=== PATIENT | female | born 1995 | race Caucasian/White ===

== ENCOUNTER 2018-05-21 21:21 | Emergency (ER) | payer SELFPAY ==
[2018-05-21] MEDS ORDERED: NS(*) 0.9% 1000 ML BAG 1,000 ML IV ONE ×2 (21:44→23:20)
[2018-05-21] MEDS ORDERED: ONDANSETRON 4 MG/2 ML VIAL IVP ONE (21:45)
--- NOTE | 2018-05-21 21:55 | ER Report ---
History and Physical Time Seen By MD: 21:48 Hx. of Stated Complaint: patient states that she got into an argument with her boyfriend, patient started walking when she became sick; someone driving saw her walkin on the side of [place] [address]; city bus driver states that she wanted to come to the hospital because she was still sick; patient has a bag of marijuana that was in her bra; marijuana was given to the warehouse loader erinn rinaldi to be placed in the security safe HPI/ROS CHIEF COMPLAINT: Nausea and vomiting HISTORY OF PRESENT ILLNESS: Patient is a 23-year-old female who is somewhat of a poor historian she is also tearful at the bedside. She states that she was at a friend's house and she is currently traveling with her boyfriend. She is from [facility]. She states that they got into an argument and she started walking along the highway trying to get "home" apparently while she was walking she became closed started feeling nauseous and having some vomiting episodes. She denies any alcohol use tonight but does say she smokes pot. She is only oriented to person and place but not time. Apparently a city bus driver saw her walking on the road on [address] and stopped to see if she needed assistance. She stated that she felt sick and wanted to come to the hospital. Apparently the patient was brought to the hospital by this good Religious. She states that she just feels sick. She denies any headache or head injury. She denies chest pain or shortness of breath. She does feel anxious she feels nauseous and has vomited 4 times but reports no abdominal pain or diarrhea. Patient denies feeling depressed than b eing upset due to her recent argument with her boyfriend. She denies suicidal or homicidal ideation. REVIEW OF SYSTEMS: Constitutional: No fever, no chills. Eyes: No discharge. ENT: No sore throat. Cardiovascular: No chest pain, no palpitations. Respiratory: No cough, no shortness of breath. Gastrointestinal: Nausea and vomiting Genitourinary: No hematuria. Musculoskeletal: No back pain. Skin: No rashes. Neurological: No headache. Allergies: Coded Allergies: amoxicillin (Verified Allergy, Unknown, 05/21/18) promethazine (Verified Allergy, Unknown, 05/21/18) Home Meds Active Scripts Ondansetron Hcl (ZOFRAN) 4 Mg Tablet, 4 MG PO Q8H for Nausea, #15 TAB 0 Refills Prov:HAYDE GUTHRIE MD 05/21/18 Azithromycin (ZITHROMAX) 250 Mg Tablet, 1 TAB PO QDAY, #4 TAB 0 Refills Prov:HAYDE GUTHRIE MD 05/21/18 Past Medical/Surgical History History of being partially deaf, history of ovarian cysts. Hx Substance Use Disorder: Yes (marijuana, meth 3 days ago) Hx Alcohol Use: Yes (occ.) Constitutional Vital Sign - Last 24 Hours 05/21/18 05/21/18 05/21/18 05/21/18 21:26 21:28 21:30 21:50 Temp 97.8 Pulse 96 128 98 Resp 20 B/P (MAP) 122/78 (93) 126/78 126/78 (94) Pulse Ox 91 100 82 100 O2 Delivery Room Air Room Air Room Air Oxy Mask O2 Flow Rate 5 Physical Exam General/Constitutional: Patient is awake, alert, nontoxic and in no acute respiratory distress. ANxious and tearful Head: Normocephalic and atraumatic. Eyes: Conjunctival clear, Pupils are equal and reactive to light. Extraocular muscles are intact and symmetrical. Sclera are clear and anicteric. Ears:External canals are clear. Tympanic membranes are clear with normal landmarks and light reflex. Nares: No rhinorrhea or bleeding. Turbinates are pink and moist. Oropharyngeal: Mucous membranes are moist. There is no pharyngeal erythema or exudate. There are no palatal petechiae. Uvula is midline and symmetrical. Neck: Supple, no adenopathy. Cardiovascular: Heart is regular rate and rhythm without audible murmurs, rubs or gallops. Pulmonary: Lungs are clear to auscultation bilaterally. There are no wheezes, rales, or rhonchi. Chest rise is symmetrical Abdomen: Soft, nontender, no guarding or peritoneal signs. Extremities: No gross deformities, No peripheral cyanosis. Able to move all 4 extremities. Neuro: Alert and oriented X3, Cranial nerves 2 thru 12 are intact and symmetrical. Patient has normal gait. Skin: No rashes, skin is warm dry and well perfused. Psychiatric: Patient is anxious and tearful. Mood is congruent with affect. Patient stopped process seems logical and goal-directed. She does not seem to be responding to internal stimuli. She denies suicidal or homicidal ideation. Medical Decision Making Data Points Result Diagram: 05/21/18213005/21/182130 Laboratory Hematology Test 05/21/18 21:31 05/21/18 21:37 05/21/18 22:01 Red Blood Count 4.47 M/uL (4.17-5.56) Mean Corpuscular Volume 89.3 fL (80.0-96.0) Mean Corpuscular Hemoglobin 30.9 pg (26.0-33.0) Mean Corpuscular Hemoglobin Concent 34.6 g/dL (32.0-36.0) Red Cell Distribution Width 13.5 % (11.5-14.5) Mean Platelet Volume 8.6 fL (7.2-11.1) Neutrophils (%) (Auto) 67.6 % (39.4-72.5) Lymphocytes (%) (Auto) 22.4 % (17.6-49.6) Monocytes (%) (Auto) 9.1 % (4.1-12.4) Eosinophils (%) (Auto) 0.1 % (0.4-6.7) Basophils (%) (Auto) 0.8 % (0.3-1.4) Nucleated RBC Relative Count (auto) 0.1 /100WBC Neutrophils # (Auto) 6.8 K/uL (2.0-7.4) Lymphocytes # (Auto) 2.3 K/uL (1.3-3.6) Monocytes # (Auto) 0.9 K/uL (0.3-1.0) Eosinophils # (Auto) 0.0 K/uL (0.0-0.5) Basophils # (Auto) 0.1 K/uL (0.0-0.1) Nucleated RBC Absolute Count (auto) 0.01 K/uL Sodium Level 135 mmol/L (137-145) Potassium Level 4.0 mmol/L (3.5-5.0) Chloride Level 98 mmol/L (98-107) Carbon Dioxide Level 21 mmol/L (22-31) Blood Urea Nitrogen 14 mg/dl (7-18) Creatinine 0.80 mg/dl (0.52-1.04) Glomerular Filtration Rate Calc > 60.0 Random Glucose 78 mg/dl (75-110) Calcium Level 9.2 mg/dl (8.4-10.2) Total Bilirubin 0.7 mg/dl (0.2-1.3) Aspartate Amino Transf (AST/SGOT) 33 U/L (0-35) Alanine Aminotransferase (ALT/SGPT) 24 U/L (0-56) Alkaline Phosphatase 87 U/L (0-126) Total Protein 7.5 g/dl (6.3-8.2) Albumin 4.3 g/dl (3.5-5.0) Lipase 66 U/L (23-300) Human Chorionic Gonadotropin, Qual Negative (NEGATIVE) Salicylates Level < 10 mg/L Salicylate Last Dose Date unk Urine Opiates Screen Positive Acetaminophen Level < 10 ug/ml Urine Barbiturates Screen Negative Ur Tricyclic Antidepressants Screen Negative Urine Phencyclidine Screen Negative Urine Amphetamines Screen Positive Urine Benzodiazepines Screen Negative Urine Cocaine Screen Negative Urine Cannabinoids Screen Positive Serum Alcohol < 10 mg/dl Helicobacter pylori IgG Antibody Negative (NEGATIVE) Urine Color Yellow Urine Clarity Cloudy Urine pH 6.0 pH (4.8-9.5) Urine Specific Desha 1.021 Urine Protein 100 mg/dL (NEGATIVE) Urine Glucose (UA) Negative mg/dL (NEGATIVE) Urine Ketones 20 mg/dL (NEGATIVE) Urine Blood Negative (NEGATIVE) Urine Nitrite Negative (NEGATIVE) Urine Bilirubin Negative (NEGATIVE) Urine Urobilinogen 2.0 mg/dL (0.2-1.9) Urine Leukocyte Esterase Trace (NEGATIVE) Urine RBC 6 /HPF (0-2/HPF) Urine WBC 31 /HPF (0-5/HPF) Urine Squamous Epithelial Cells Many /LPF (</=FEW) Urine Bacteria Few /HPF (NONE-FEW) Urine Hyaline Casts Many /LPF (NONE-FEW) Urine Mucus Few /HPF (NONE-FEW) Influenza Virus Type A (PCR) Negative (NEGATIVE) Influenza Virus Type B (PCR) Negative (NEGATIVE) Chemistry Test 05/21/18 21:31 05/21/18 21:37 05/21/18 22:01 White Blood Count 10.1 k/uL (4.5-11.0) Red Blood Count 4.47 M/uL (4.17-5.56) Hemoglobin 13.8 g/dL (12.0-16.0) Hematocrit 39.9 % (34.0-47.0) Mean Corpuscular Volume 89.3 fL (80.0-96.0) Mean Corpuscular Hemoglobin 30.9 pg (26.0-33.0) Mean Corpuscular Hemoglobin Concent 34.6 g/dL (32.0-36.0) Red Cell Distribution Width 13.5 % (11.5-14.5) Platelet Count 260 K/uL (150-450) Mean Platelet Volume 8.6 fL (7.2-11.1) Neutrophils (%) (Auto) 67.6 % (39.4-72.5) Lymphocytes (%) (Auto) 22.4 % (17.6-49.6) Monocytes (%) (Auto) 9.1 % (4.1-12.4) Eosinophils (%) (Auto) 0.1 % (0.4-6.7) Basophils (%) (Auto) 0.8 % (0.3-1.4) Nucleated RBC Relative Count (auto) 0.1 /100WBC Neutrophils # (Auto) 6.8 K/uL (2.0-7.4) Lymphocytes # (Auto) 2.3 K/uL (1.3-3.6) Monocytes # (Auto) 0.9 K/uL (0.3-1.0) Eosinophils # (Auto) 0.0 K/uL (0.0-0.5) Basophils # (Auto) 0.1 K/uL (0.0-0.1) Nucleated RBC Absolute Count (auto) 0.01 K/uL Glomerular Filtration Rate Calc > 60.0 Calcium Level 9.2 mg/dl (8.4-10.2) Total Bilirubin 0.7 mg/dl (0.2-1.3) Aspartate Amino Transf (AST/SGOT) 33 U/L (0-35) Alanine Aminotransferase (ALT/SGPT) 24 U/L (0-56) Alkaline Phosphatase 87 U/L (0-126) Total Protein 7.5 g/dl (6.3-8.2) Albumin 4.3 g/dl (3.5-5.0) Lipase 66 U/L (23-300) Human Chorionic Gonadotropin, Qual Negative (NEGATIVE) Salicylates Level < 10 mg/L Salicylate Last Dose Date unk Urine Opiates Screen Positive Acetaminophen Level < 10 ug/ml Urine Barbiturates Screen Negative Ur Tricyclic Antidepressants Screen Negative Urine Phencyclidine Screen Negative Urine Amphetamines Screen Positive Urine Benzodiazepines Screen Negative Urine Cocaine Screen Negative Urine Cannabinoids Screen Positive Serum Alcohol < 10 mg/dl Helicobacter pylori IgG Antibody Negative (NEGATIVE) Urine Color Yellow Urine Clarity Cloudy Urine pH 6.0 pH (4.8-9.5) Urine Specific Desha 1.021 Urine Protein 100 mg/dL (NEGATIVE) Urine Glucose (UA) Negative mg/dL (NEGATIVE) Urine Ketones 20 mg/dL (NEGATIVE) Urine Blood Negative (NEGATIVE) Urine Nitrite Negative (NEGATIVE) Urine Bilirubin Negative (NEGATIVE) Urine Urobilinogen 2.0 mg/dL (0.2-1.9) Urine Leukocyte Esterase Trace (NEGATIVE) Urine RBC 6 /HPF (0-2/HPF) Urine WBC 31 /HPF (0-5/HPF) Urine Squamous Epithelial Cells Many /LPF (</=FEW) Urine Bacteria Few /HPF (NONE-FEW) Urine Hyaline Casts Many /LPF (NONE-FEW) Urine Mucus Few /HPF (NONE-FEW) Influenza Virus Type A (PCR) Negative (NEGATIVE) Influenza Virus Type B (PCR) Negative (NEGATIVE) Toxicology Test 05/21/18 21:31 Salicylates Level < 10 mg/L Salicylate Last Dose Date unk Urine Opiates Screen Positive Acetaminophen Level < 10 ug/ml Urine Barbiturates Screen Negative Ur Tricyclic Antidepressants Screen Negative Urine Phencyclidine Screen Negative Urine Amphetamines Screen Positive Urine Benzodiazepines Screen Negative Urine Cocaine Screen Negative Urine Cannabinoids Screen Positive Serum Alcohol < 10 mg/dl Urinalysis Test 05/21/18 21:37 Urine Color Yellow Urine Clarity Cloudy Urine pH 6.0 pH (4.8-9.5) Urine Specific Desha 1.021 Urine Protein 100 mg/dL (NEGATIVE) Urine Glucose (UA) Negative mg/dL (NEGATIVE) Urine Ketones 20 mg/dL (NEGATIVE) Urine Blood Negative (NEGATIVE) Urine Nitrite Negative (NEGATIVE) Urine Bilirubin Negative (NEGATIVE) Urine Urobilinogen 2.0 mg/dL (0.2-1.9) Urine Leukocyte Esterase Trace (NEGATIVE) Urine RBC 6 /HPF (0-2/HPF) Urine WBC 31 /HPF (0-5/HPF) Urine Squamous Epithelial Cells Many /LPF (</=FEW) Urine Bacteria Few /HPF (NONE-FEW) Urine Hyaline Casts Many /LPF (NONE-FEW) Urine Mucus Few /HPF (NONE-FEW) EKG/Imaging Imaging [place] [facility] [place]IENT NAME: Anjelica Kennedy : 1995 MR: [id number] V: [id number] EXAM DATE: ORDERING PHYSICIAN: HAYDE GUTHRIE TECHNOLOGIST: Location: Patient: Anjelica Kennedy : 1995 Visit/Account:[id number] Date of Sevice: 05/21/[address]: Indication: Altered mental status. Technique: Contiguous axial sections were obtained from the base to the vertex w ithout contrast enhancement. One of the following dose optimization techniques was utilized in the p erformance of this exam: Automated exposure control; adjustment of the mA and/or kV according to the patient's size; or use of an iterative reconstruction technique. Specific details can be referenced in the facility's radiology CT exam operational policy. Comparison: None available. Findings: There is no evidence of intra-axial or extra-axial hemorrhage. No focal areas of decreased or increased attenuation are identified. There is no evidence of mass, edema, or shift of the midline structures. The size, shape, and configuration of the ventricular system are normal. The skeletal structures are intact and unremarkable. There is extensive mucosal thickening and free fluid in the maxillary sinuses. A lesser degree of mucosal thickening is observed in the ethmoid and sphenoid sinuses. The mastoid air cells are clear. Impression: No evidence of acute intracranial abnormality. Significant sinusitis. Report Dictated By: Gael Guerra MD at 05/21/2018 10:42 PM Report E-Signed By: Gael Guerra MD at 05/21/2018 10:46 PM WSN:[id number] ED Course/Re-evaluation ED Course 05/21/2018 11:42:[address] scan showing sinusitis. Plan at this time will be to treat with oral antibiotics patient has allergy to amoxicillin and Zithromax. Blood work is essentially unremarkable. Urine drug screen positive for both marijuana and methamphetamine which was expected. Plan will be discharge home Decision to Disposition Date: May 22, 2018 Decision to Disposition Time: 00:10 Depart Departure Latest Vital Signs Vital Signs Date Time Temp Pulse Resp B/P (MAP) Pulse Ox O2 Delivery O2 Flow Rate FiO2 05/21/18 21:50 100 Oxy Mask 5 05/21/18 21:30 98 126/78 (94) 05/21/18 21:28 97.8 20 Impression: Primary Impression: ACUTE SINUSITIS, UNSPECIFIED Additional Impression: Drug abuse Condition: Improved Disposition: HOME OR SELF-CARE New Scripts Ondansetron Hcl (ZOFRAN) 4 Mg Tablet 4 MG PO Q8H for Nausea, #15 TAB 0 Refills Prov: HAYDE GUTHRIE MD 05/21/18 Azithromycin (ZITHROMAX) 250 Mg Tablet 1 TAB PO QDAY, #4 TAB 0 Refills Prov: HAYDE GUTHRIE MD 05/21/18 Patient Instructions: Cannabis Abuse (ED), Sinusitis (ED) Problem Qualifiers HAYDE GUTHRIE MD May 21, 2018 21:55
[2018-05-21 21:59] LABS: PLATELET COUNT, AUTOMATED 260 K/uL (150-450)
--- NOTE | 2018-05-21 22:04 | EKG ---
FACILITY: [facility] - [place] PATIENT NAME: DAISY LAKE : [id number] MR: [id number]: [id number] EXAM DATE: ORDERING PHYSICIAN: HAYDE GUTHRIE TECHNOLOGIST: GEOVANNA Test Reason : TACHYCARDIA Blood Pressure : / mmHG Vent. Rate : 112 BPM Atrial Rate : 112 BPM P-R Int : 130 ms QRS Dur : 092 ms QT Int : 354 ms P-R-T Axes : 062 083 031 degrees QTc Int : 483 ms Sinus tachycardia Otherwise normal ECG No previous ECGs available Confirmed by KORINA COLLINS ([id number]) on 05/22/2018 6:32:05 AM Referred By: Confirmed By:KORINA COLLINS
--- NOTE | 2018-05-21 22:51 | RADIOLOGY IMAGING REPORT ---
FACILITY: [facility] PATIENT NAME: Anjelica Kennedy : 1995 MR: [id number] V: [id number] EXAM DATE: ORDERING PHYSICIAN: HAYDE GUTHRIE TECHNOLOGIST: Location: [facility] Patient: Anjelica Kennedy : 1995 Visit/Account:[id number] Date of Sevice: 05/21/[address]: Indication: Altered mental status. Technique: Contiguous axial sections were obtained from the base to the vertex without contrast enhan cement. One of the following dose optimization techniques was utilized in the performance of this exam: Autom ated exposure control; adjustment of the mA and/or kV according to the patient's size; or use of an i terative reconstruction technique. Specific details can be referenced in the facility's radiology CT exam operational policy. Comparison: None available. Findings: There is no evidence of intra-axial or extra-axial hemorrhage. No focal areas of decreased or increased attenuation are identified. There is no evidence of mass, edema, or shift of the midline structures. The size, shape, and configuration of the ventricular system are normal. The skeletal st ructures are intact and unremarkable. There is extensive mucosal thickening and free fluid in the maxillary sinuses. A lesser degree of muc osal thickening is observed in the ethmoid and sphenoid sinuses. The mastoid air cells are clear. Impression: No evidence of acute intracranial abnormality. Significant sinusitis. Report Dictated By: Gael Guerra MD at 05/21/2018 10:42 PM Report E-Signed By: Gael Guerra MD at 05/21/2018 10:46 PM WSN:[id number]
[2018-05-21] MEDS ORDERED: AZITHROMYCIN 250 MG TAB PO ONE (23:15)
[2018-05-21] MEDS ORDERED: AZIT-1 PO (23:47)
[2018-05-21] MEDS ORDERED: ONDA4TAB97 PO (23:47)
[2018-05-22] VITALS: BP 112/67
== END 2018-05-22 00:21 | disposition home or self-care (01) ==
LOC: ER 21:56
DX: J01.90 Acute sinusitis, unspecified (principal); F12.90 Cannabis use, unspecified, uncomplicated; F15.90 Other stimulant use, unspecified, uncomplicated; R00.0 Tachycardia, unspecified
CPT/HCPCS: 70450; 80305; 80320; 80329; 81001; 83690; 84703; 85025; 86677; 87502; 93005; 96361; 96374; 99284; J2405; J7030; Q0144; 82040; 82247; 82310; 82374; 82435; 82565; 82947; 84075; 84132; 84155; 84295; 84450; 84460; 84520